=== PATIENT | female | born 1955 | race Caucasian/White ===

== ENCOUNTER 2023-08-27 17:16 | Emergency (ER) | payer OTHER ==
[~2023-08-27] VITALS: Ht 170.2 cm; Wt 58.5 kg
[2023-08-27 17:37] VITALS: BP 101/72; PULSE 85; RESP 18; TEMP 98; O2SAT 99
[2023-08-27] MEDS ORDERED: AMOX1TAB8 PO (18:17)
[2023-08-27] MEDS ORDERED: BENZ-300 PO (18:17)
[2023-08-27 18:35] LABS: FLU A ANTIGEN negative (NEGATIVE); FLU B ANTIGEN NEGATIVE (NEGATIVE)
== END 2023-08-27 19:00 | disposition home or self-care (01) ==
LOC: MED 17:16
DX: H66.92 Otitis media, unspecified, left ear (principal); Z20.822 Contact with and (suspected) exposure to COVID-19; E03.9 Hypothyroidism, unspecified; Z79.899 Other long term (current) drug therapy; Z79.2 Long term (current) use of antibiotics
CPT/HCPCS: 87081; 99283

== ENCOUNTER 2023-10-07 12:42 | Emergency (ER) | payer OTHER ==
[~2023-10-07] VITALS: Ht 165.1 cm; Wt 58.5 kg
[~2023-10-07 12:42] MED LIST: AMOX1TAB8 PO; BENZ-300 PO
[2023-10-07 12:52] VITALS: BP 106/66; PULSE 79; RESP 16; TEMP 98; O2SAT 96
[2023-10-07] MEDS: ACETAMINOPHEN EXTRA STRENGTH 500 MG TAB PO ONE (14:02)
[2023-10-07] MEDS ORDERED: AMOX875T3 PO (15:01)
[2023-10-07] MEDS ORDERED: ACET-10509 PO (15:01)
[2023-10-07 15:14] VITALS: BP 106/66; PULSE 79; RESP 16; TEMP 98; O2SAT 96
[2023-10-07 16:13] LABS: FLU A ANTIGEN negative (NEGATIVE); FLU B ANTIGEN NEGATIVE (NEGATIVE)
== END 2023-10-07 13:45 | disposition home or self-care (01) ==
LOC: MED 12:42
DX: H66.92 Otitis media, unspecified, left ear (principal); J06.9 Acute upper respiratory infection, unspecified; Z20.822 Contact with and (suspected) exposure to COVID-19; E03.9 Hypothyroidism, unspecified; Z79.899 Other long term (current) drug therapy
CPT/HCPCS: 71046; 99284